=== PATIENT | male | born 1960 | race Caucasian/White ===

== ENCOUNTER → 2017-04-11 | Outpatient (CLI) | payer OTHER ==
[~2017-04-11] MED LIST: ASPEC81 PO; CLXOPS3 OP
[2017-04-11 17:52] LABS: ALT/SGPT 38 U/L (12-78); AST/SGOT 24 U/L (15-37); BLOOD UREA NITROGEN 17 mg/dl (7-18); CARBON DIOXIDE 29 mmol/L (21-32); CHLORIDE 108 mmol/L (98-107); CREATININE 0.98 mg/dl (0.60-1.40); GLUCOSE 89 mg/dl (70-99); SODIUM 140 mmol/L (136-145)
[2017-04-11 17:56] LABS: ALKALINE PHOSPHATASE 69 U/L (45-117); CHOLESTEROL 152 mg/dl (0-200); CHOLESTEROL/HDL RATIO 3.4; HDL CHOLESTEROL 45 mg/dl; LDL CHOLESTEROL CALCULATED 85 mg/dl; TRIGLYCERIDES 111 mg/dl (0-150); VERY LOW DENSITY LIPOPROT CALC 22 mg/dl
== END | disposition home or self-care (01) ==
LOC: C.LABPVFM 16:05
PROVIDERS: ATTEND Neuromusculoskeletal Medicine & OMM
DX: Z00.00 Encounter for general adult medical examination without abnormal findings (principal); R39.11 Hesitancy of micturition; N40.1 Benign prostatic hyperplasia with lower urinary tract symptoms; N52.9 Male erectile dysfunction, unspecified

== ENCOUNTER → 2017-05-24 | Outpatient (CLI) | payer OTHER ==
--- NOTE | 2017-05-24 09:28 | DIAGNOSTIC IMAGING REPORT ---
(BLAD) RETROPERITONEAL LTD CLINICAL HISTORY: 56 years-old Male presenting with urinary hesitancy, BPH. TECHNIQUE: Real-time grayscale and limited color Doppler ultrasound imaging of the bladder was performed. COMPARISON: None. FINDINGS: Bladder: No bladder wall thickening. Bilateral ureteral jets present. The prostate is enlarged, likely indicating underlying benign prostatic hyperplasia. Enlarged prostate exerts mass effect on the bladder neck. Prevoid volume of the bladder measures 162 mL. Post void residual volume measures on 102 mL, which is abnormal. Other: None. IMPRESSION: 1. Prostatomegaly likely indicating underlying benign prostatic hyperplasia. 2. Abnormal post void residual volume measuring over 100 mL. Electronically signed by: Alden Gupta M.D. 05/24/2017 9:26 AM Dictated Date/Time: 05/24/2017 9:24 AM
== END | disposition home or self-care (01) ==
LOC: C.ULTR 08:59
PROVIDERS: ATTEND Neuromusculoskeletal Medicine & OMM
DX: N40.1 Benign prostatic hyperplasia with lower urinary tract symptoms (principal); R39.11 Hesitancy of micturition; R33.9 Retention of urine, unspecified